=== PATIENT | male | born 1950 | race Caucasian/White ===

== ENCOUNTER 2019-02-05 00:16 | Inpatient (IN) ==
[2019-02-05] MEDS ORDERED: NITROGLYCERIN SL 0.4 MG TABLET SL PRN (00:46)
[2019-02-05] MEDS ORDERED: MORPHINE 4 MG/1 ML VIAL IV STA ×2 (00:46→02:13)
[2019-02-05] MEDS ORDERED: ONDANSETRON 4 MG/2 ML VIAL IV STA (00:46)
[2019-02-05 01:24] LABS: Basophils # 0.1 10*3/uL (0.0-0.2); Basophils % 0.5 % (0.0-0.8); Eosinophils # 0.1 10*3/uL (0.0-0.87); Hematocrit 49.3 VOL% (42.0-52.0); Hemoglobin 16.6 GM/DL (14.0-18.0); Immature Granulocytes % 0.8 %; Immature Granulocytes Absolute 0.08 #; Lymphocytes # 3.7 10*3/uL (1.4-4.0); Lymphocytes % 38.1 % (21.2-54.2); Mean Corpuscular HGB Conc 33.7 GM/DL (32-36); Mean Corpuscular Volume 93.4 FL (87-102); Mean Platelet Volume 10.6 FL (9.6-12.0); Monocytes % 8.8 % (1.7-12.7); Neutrophils % 50.8 % (38.7-73.9); Platelet Count 244 T/CUMM (130-400); Red Blood Count 5.28 MC/CUMM (3.8-5.5); Red Cell Distribution Width 12.9 % (9.3-17.3); White Blood Count 9.7 T/CUMM (4-12)
[2019-02-05 01:43] LABS: INR 0.9; PT Patient Result 9.4 SECS
[2019-02-05 01:50] LABS: Albumin 3.9 G/DL (3.4-5.0); Bilirubin,Total 0.4 MG/DL (0.2-1.0); Calcium 9.2 MG/DL (8.5-10.1); Osmolality,Calculated 278.5 MOS/KG (273-304); Total Protein 7.9 G/DL (6.4-8.3)
[2019-02-05] MEDS ORDERED: METOPROLOL TARTRATE 5 MG/5 ML VIAL IV STA (02:09)
[2019-02-05] MEDS ORDERED: METOPROLOL TARTRATE 5 MG/5 ML VIAL IV ONE (02:11)
[2019-02-05] MEDS ORDERED: METOPROLOL TARTRATE 25 MG TABLET PO STA (02:13)
[2019-02-05] MEDS: NITROGLYCERIN DRIP 50 MG/250 ML BOTTLE IV SCH (03:00)
[2019-02-05] MEDS ORDERED: ONDANSETRON 4 MG/2 ML VIAL IV PRN (03:11)
[2019-02-05] MEDS ORDERED: NITROGLYCERIN DRIP 50 MG/250 ML BOTTLE IV SCH (03:30)
[2019-02-05] MEDS: ENOXAPARIN 100 MG/ML SYRINGE SUBCUT SCH ×2 (04:05→16:33)
[2019-02-05 04:54] LABS: Basophils # 0.1 10*3/uL (0.0-0.2); Basophils % 0.5 % (0.0-0.8); Eosinophils # 0.1 10*3/uL (0.0-0.87); Eosinophils % 0.6 % (0.00-10.9); Hematocrit 43.5 VOL% (42.0-52.0); Hemoglobin 14.7 GM/DL (14.0-18.0); Immature Granulocytes % 0.5 %; Immature Granulocytes Absolute 0.05 #; Lymphocytes # 2.1 10*3/uL (1.4-4.0); Lymphocytes % 19.2 % (21.2-54.2); Mean Corpuscular HGB Conc 33.8 GM/DL (32-36); Mean Corpuscular Volume 93.3 FL (87-102); Mean Platelet Volume 10.8 FL (9.6-12.0); Monocytes % 7.7 % (1.7-12.7); Neutrophils % 71.5 % (38.7-73.9); Platelet Count 217 T/CUMM (130-400); Red Blood Count 4.66 MC/CUMM (3.8-5.5); Red Cell Distribution Width 12.9 % (9.3-17.3); White Blood Count 10.9 T/CUMM (4-12)
[2019-02-05 05:26] LABS: Alanine Aminotransferase 38 U/L (16-61); Albumin 3.4 G/DL (3.4-5.0); Alkaline Phosphatase 102 U/L (45-117); Aspartate Amino Transferase 22 U/L (0-37); Bilirubin,Total < 0.39 MG/DL (0.2-1.0); Blood Urea Nitrogen 16 MG/DL (7-18); Calcium 8.5 MG/DL (8.5-10.1); Glucose 116 MG/DL (74-106); Osmolality,Calculated 274.8 MOS/KG (273-304); Total Protein 6.4 G/DL (6.4-8.3)
[2019-02-05] MEDS: METOPROLOL TARTRATE 25 MG TABLET PO SCH ×2 (08:14→20:23)
[2019-02-05] MEDS: ASPIRIN EC 81 MG TABLET PO SCH (08:14)
[2019-02-05] MEDS ORDERED: POTASSIUM CHLORIDE RIDER 10 MEQ in PREMIX 1 EACH IV PRN (08:34)
[2019-02-05] MEDS ORDERED: MAGNESIUM SULF RIDER 2 GM in PREMIX 1 EACH IV PRN (08:34)
[2019-02-05 08:36] LABS: CKMB % 9.3 %
[2019-02-05 08:37] LABS: Troponin I 0.979 NG/ML (0.00-0.045)
[2019-02-05] MEDS ORDERED: diphenhydrAMINE CAP 25 MG CAPSULE PO ONE (09:00)
[2019-02-05] MEDS ORDERED: DIAZEPAM 5 MG TABLET PO ONE (09:00)
[2019-02-05] MEDS: LANSOPRAZOLE ODT 30 MG TABLET PO SCH (09:25)
[2019-02-05] MEDS: SODIUM CHLORIDE 0.45% 1,000 ML IV SCH ×2 (09:37→18:06)
[2019-02-05] MEDS ORDERED: NITROGLYCERIN DRIP 50 MG/250 ML BOTTLE IV ONE (10:24)
[2019-02-05] MEDS ORDERED: LIDOCAINE 1% 20 ML VIAL ONE (10:24)
[2019-02-05] MEDS ORDERED: HYDROmorphone 2 MG/1 ML VIAL ONE (10:24)
[2019-02-05] MEDS ORDERED: MIDAZOLAM 2 MG/2 ML VIAL ONE (10:24)
[2019-02-05] MEDS ORDERED: VERAPAMIL 5 MG/2 ML VIAL ONE (10:24)
[2019-02-05] MEDS ORDERED: ENOXAPARIN 30 MG/0.3 ML SYRINGE ONE (10:57)
[2019-02-05] MEDS ORDERED: TIROFIBAN 5,000 MCG/100 ML PREMIX IV ONE (10:57)
[2019-02-05] MEDS ORDERED: ADENOSINE 90 MG/30 ML VIAL IV ONE (11:17)
[2019-02-05] MEDS ORDERED: TICAGRELOR 90 MG TABLET ONE (11:28)
[2019-02-05] MEDS ORDERED: ACETAMINOPHEN 325 MG TABLET PO PRN (11:34)
[2019-02-05] MEDS ORDERED: HYDROmorphone 2 MG/1 ML VIAL IV PRN (11:34)
[2019-02-05] MEDS ORDERED: ATORVASTATIN 80 MG TABLET PO ONE (11:37)
[2019-02-05 13:53] LABS: CKMB % 10.2 %
[2019-02-05 13:56] LABS: Troponin I 1.93 NG/ML (0.00-0.045)
[2019-02-05] MEDS ORDERED: ZALEPLON 5 MG CAPSULE PO PRN (14:08)
[2019-02-05] MEDS ORDERED: diphenhydrAMINE CAP 25 MG CAPSULE PO PRN (14:08)
[2019-02-05] MEDS: ALUMINUM/MAGNES/SIMETH MAX STR 30 ML UDCUP PO PRN ×2 (17:16→20:23)
[2019-02-05] MEDS: TICAGRELOR 90 MG TABLET PO SCH (20:23)
[2019-02-05] MEDS ORDERED: AMITRIPTYLINE 25 MG TABLET PO SCH (21:00)
[2019-02-06] MEDS: SODIUM CHLORIDE 0.45% 1,000 ML IV SCH (01:18)
[2019-02-06] MEDS: NITROGLYCERIN DRIP 50 MG/250 ML BOTTLE IV SCH (01:49)
[2019-02-06 02:56] LABS: Basophils % 0.3 % (0.0-0.8); Eosinophils # 0.1 10*3/uL (0.0-0.87); Eosinophils % 1.2 % (0.00-10.9); Hematocrit 43.6 VOL% (42.0-52.0); Immature Granulocytes % 0.5 %; Immature Granulocytes Absolute 0.05 #; Lymphocytes # 1.6 10*3/uL (1.4-4.0); Lymphocytes % 15.2 % (21.2-54.2); Mean Corpuscular HGB Conc 34.4 GM/DL (32-36); Mean Corpuscular Volume 92.2 FL (87-102); Mean Platelet Volume 10.5 FL (9.6-12.0); Monocytes % 7.5 % (1.7-12.7); Neutrophils % 75.3 % (38.7-73.9); Platelet Count 193 T/CUMM (130-400); Red Blood Count 4.73 MC/CUMM (3.8-5.5); Red Cell Distribution Width 12.7 % (9.3-17.3); White Blood Count 10.6 T/CUMM (4-12)
[2019-02-06 03:15] LABS: Platelet Estimate Normal
[2019-02-06] MEDS: ENOXAPARIN 100 MG/ML SYRINGE SUBCUT SCH (03:21)
[2019-02-06 03:25] LABS: CKMB % 8.6 %
[2019-02-06 03:56] LABS: Calcium 8.1 MG/DL (8.5-10.1); Osmolality,Calculated 277.5 MOS/KG (273-304)
[2019-02-06 04:03] LABS: Troponin I 9.61 NG/ML (0.00-0.045)
[2019-02-06] MEDS: ASPIRIN EC 81 MG TABLET PO SCH (08:28)
[2019-02-06] MEDS: TICAGRELOR 90 MG TABLET PO SCH (08:28)
[2019-02-06] MEDS: METOPROLOL TARTRATE 25 MG TABLET PO SCH (08:28)
[2019-02-06] MEDS: LANSOPRAZOLE ODT 30 MG TABLET PO SCH (08:29)
[2019-02-06] MEDS ORDERED: hydrALAZINE 25 MG TABLET PO SCH (09:00)
[2019-02-06 09:02] VITALS: BP 173/80
[2019-02-06 11:57] LABS: CKMB % 6.7 %
[2019-02-06 11:58] LABS: Troponin I 8.62 NG/ML (0.00-0.045)
[2019-02-06] MEDS ORDERED: ROSUVASTATIN 10 MG TABLET PO SCH (21:00)
[2019-02-06] MEDS ORDERED: PITAVASTATIN 2 MG TABLET PO SCH (21:00)
== END 2019-02-06 15:56 | disposition home or self-care (01) | DRG 247 ==
LOC: N.EDINP 00:16 → N.ED 00:16 → N.ICU 03:31
PROVIDERS: ADMIT Internal Medicine Clinical Cardiac Electrophysiology; ATTEND Internal Medicine Clinical Cardiac Electrophysiology
PROC: CLCCHCL (ICD-10-PCS; 2019-02-05 11:45)